=== PATIENT | female | born 1990 | race Caucasian/White ===

== ENCOUNTER 2019-07-10 16:53 | Emergency (ER) | payer OTHER ==
[~2019-07-10] VITALS: Ht 165.1 cm; Wt 68.0 kg
[2019-07-10 17:03] VITALS: BP 107/67
--- NOTE | 2019-07-10 17:03 | NUR ---
T ARRIVED TO ED C/O SYNCOPE EPISODE 1 HR AGO TODAY. PT SATTES SHE WAS AT THE DENTIST GETTING WISDOM TOOTH TAKEN OUT AND SAHE ENDED UP SWEATING AND HAVING TROUBLE BREATHING AND HAD A SYNCOPE EPISODE AND HAD TO CALL 911. PT STABLE AND A & O X 4. SPEECH IS SLURRDE AND PT STATES SHE FEELS NUMBNESS AND TINGLING ON HER RIGHT ARM. LUNG SOUNDS CLEAR ALL THROUGHOUT. VSS. SPO2 100 % RA. NKA.
[2019-07-10] MEDS ORDERED: NACL 0.9% 1,000 ML IV ONE (17:10)
[2019-07-10 17:59] LABS: BASOPHILS % (AUTO) 0.2 % (0.0-2.0); EOSINOPHILS # (AUTO) 0.2 K/uL (0-0.4); HEMATOCRIT 37.7 % (36-48); HEMOGLOBIN 12.4 g/dL (12.0-16.0); LYMPHOCYTES # (AUTO) 1.6 K/uL (2.5-16.5); LYMPHOCYTES % (AUTO) 14.2 % (20.5-51.1); MEAN CORPUSCULAR HEMOGLOBIN 32 pg (27-31); MEAN CORPUSCULAR HGB CONC 33 g/dL (33-37); MONOCYTES # (AUTO) 0.3 K/uL (0.8-1.0); NEUTROPHILS # (AUTO) 9.1 K/uL (1.8-7.7); NEUTROPHILS % (AUTO) 80.6 % (42.2-75.2); PLATELET COUNT (AUTO) 201 K/uL (140-450); RED BLOOD CELL COUNT(AUTO) 3.85 MIL/uL (4.20-5.40); RED CELL DISTRIBUTION WIDTH 13.4 % (11.6-13.7); WHITE BLOOD COUNT (AUTO) 11.3 K/uL (4.8-10.8)
[2019-07-10 18:36] LABS: ANION GAP 11.5 (8-16); CARBON DIOXIDE 26.2 mmol/L (21-32); CREATININE 0.9 mg/dL (0.6-1.3); POTASSIUM 3.7 mmol/L (3.5-5.1)
[2019-07-10 18:37] LABS: ALBUMIN 3.4 g/dL (3.4-5.0); TOTAL BILIRUBIN 0.3 mg/dL (0.0-1.0)
[2019-07-10 20:02] VITALS: BP 107/67
--- NOTE | 2019-07-10 20:03 | NUR ---
Patient discharged with v/s stable. Written and verbal after care instructions given and explained. Patient alert, oriented and verbalized understanding of instructions. Ambulatory with steady gait. All questions addressed prior to discharge. ID band removed. Patient advised to follow up with PMD. Rx of MOTRIN AND ACETMINOPHEN given. Patient educated on indication of medication including possible reaction and side effects. Opportunity to ask questions provided and answered.
== END 2019-07-10 20:03 | disposition home or self-care (01) ==
LOC: MED 16:53
DX: R55 Syncope and collapse (principal)
CPT/HCPCS: 36415; 80053; 83690; 84484; 84702; 85025; 93005; 96360; 99284; J7030